=== PATIENT | male | born 1960 | race Caucasian/White ===

== ENCOUNTER 2018-05-06 18:35 | Inpatient (IN) | payer BC, OTHER ==
[2018-05-06] MEDS ORDERED: ceFAZolin 2 GM/DEXTROSE 100 ML IV ONE (18:40)
[2018-05-06] MEDS ORDERED: NS 1,000 ML IV ONE (18:40)
[2018-05-06] MEDS ORDERED: fentaNYL 100 MCG/2 ML INJ IVP ONE (18:40)
[2018-05-06] MEDS ORDERED: TDAP ADULT 0.5 ML INJ (BOOSTRIX) IM ONE (18:41)
[2018-05-06] MEDS ORDERED: PANTOPRAZOLE SODIUM 40 MG VIAL IVP ONE (18:43)
--- NOTE | 2018-05-06 18:46 | EDPHY ---
H & P Time Seen by Provider: 05/06/18 18:43 HPI/ROS: Chief complaint. Full trauma activation HPI. Patient is a 57-year-old male presents emergency department by EMS with as a full trauma activation. He cut his left forearm with a box stacker and sustained pulsatile bleeding. The patient says this was an accidental laceration. Tourniquet applied 35 min prior to arrival. There is no other injuries. No focal weakness to his fingers. Paresthesias to left hand after the tourniquet has been on. ROS 10 systems were reviewed and negative with the exception of the elements mentioned in the history of present illness Past Medical/Surgical History: Hypertension Social History: Single, nonsmoker, no alcohol Physical Exam: General Appearance: Alert well-developed male moderate distress vital signs stable Eyes: Pupils equal and round no pallor or injection. ENT, Mouth: Mucous membranes are moist. Respiratory: There are no retractions, lungs are clear to auscultation. Cardiovascular: Regular rate and rhythm. Gastrointestinal: Abdomen is soft and nontender, no masses, bowel sounds normal. Neurological: Awake and alert, sensory and motor exams grossly normal. Skin: Warm and dry, no rashes. Musculoskeletal: Neck is supple nontender. Extremities left forearm shows about a 4 in laceration on the flexor side of the mid forearm. When we let the tourniquet down the patient has brisk bleeding but not obviously pulsatile. Flexor tendon testing appears normal. The arm is dusky after being in the tourniquet. Patient does have sensation in median, radial, ulnar nerve distributions. Psychiatric: Patient is oriented X 3, there is no agitation. Constitutional: Initial Vital Signs Temperature (C) 36.9 C 05/06/18 18:29 Heart Rate 54 L 05/06/18 18:29 Respiratory Rate 18 05/06/18 18:29 Blood Pressure 150/105 H 05/06/18 18:29 O2 Sat (%) 99 05/06/18 18:29 O2 Delivery Mode Room Air Medical Decision Making Procedures: IV normal saline. Ancef IV. Tetanus update is performed. Patient is typed and crossed for 2 units of blood ED Course/Re-evaluation: Dr. Logan is present prior to the patient arrival in sees the patient with me. We explained to the patient that he needs to go to the operating room for repair. Last meal was apparently 1 and 0.5 hr ago but he does not remember when he 8. I also consulted and discussed case with Dr. Davenport on-call for hands. He will be available to Dr. Logan should need arise during surgery Differential Diagnosis: This appears to be radial artery laceration. I suspect that there is muscle or tendon involvement though the patient's exam in the ED appears relatively normal. Sensation appears normal and at this time and does not appear he sustain major nerve injury. Plan is operating room - Data Points Laboratory Results: Laboratory Results 05/06/18 18:43 05/06/18 18:43 05/06/18 05/06/18 05/06/18 18:48 18:43 18:43 WBC RBC Hgb POC Hgb 14.3 gm/dL gm/dL (13.7-17.5) Hct POC Hct 42 % % (40-51) MCV MCH MCHC RDW Plt Count MPV Neut % (Auto) Lymph % (Auto) Hendry % (Auto) Eos % (Auto) Baso % (Auto) Nucleat RBC Rel Count Absolute Neuts (auto) Absolute Lymphs (auto) Absolute Monos (auto) Absolute Eos (auto) Absolute Basos (auto) Absolute Nucleated RBC Immature Gran % Immature Gran # PT INR APTT POC Sodium 143 mEq/L mEq/L (135-145) Sodium 136 mEq/L mEq/L (135-145) POC Potassium 3.1 mEq/L L mEq/L (3.3-5.0) Potassium 3.4 mEq/L L mEq/L (3.5-5.2) POC Chloride 106 mEq/L mEq/L (97-110) Chloride 107 mEq/L mEq/L (97-110) Carbon Dioxide 24 mEq/l mEq/l (22-31) POC Total CO2 25 mEq/L mEq/L (22-31) Anion Gap 5 mEq/L L mEq/L (6-14) POC BUN 17 mg/dL mg/dL (7-23) BUN 20 mg/dL mg/dL (7-23) Creatinine 1.1 mg/dL mg/dL (0.7-1.3) POC Creatinine 1.2 mg/dL mg/dL (0.7-1.3) Estimated GFR > 60 Glucose 106 mg/dL H mg/dL (70-100) POC Glucose 109 mg/dL H mg/dL (70-100) Calcium 8.6 mg/dL mg/dL (8.5-10.4) Patient ABO/Rh A POSITIVE Antibody Screen NEGATIVE Crossmatch IS Only See Detail 05/06/18 05/06/18 18:43 18:43 WBC 8.54 10^3/uL 10^3/uL (3.80-9.50) RBC 4.55 10^6/uL 10^6/uL (4.40-6.38) Hgb 14.1 g/dL g/dL (13.7-17.5) POC Hgb Hct 41.7 % % (40.0-51.0) POC Hct MCV 91.6 fL fL (81.5-99.8) MCH 31.0 pg pg (27.9-34.1) MCHC 33.8 g/dL g/dL (32.4-36.7) RDW 13.6 % % (11.5-15.2) Plt Count 229 10^3/uL 10^3/uL (150-400) MPV 9.6 fL fL (8.7-11.7) Neut % (Auto) 78.2 % H % (39.3-74.2) Lymph % (Auto) 13.9 % L % (15.0-45.0) Hendry % (Auto) 5.9 % % (4.5-13.0) Eos % (Auto) 1.4 % % (0.6-7.6) Baso % (Auto) 0.2 % L % (0.3-1.7) Nucleat RBC Rel Count 0.0 % % (0.0-0.2) Absolute Neuts (auto) 6.68 10^3/uL H 10^3/uL (1.70-6.50) Absolute Lymphs (auto) 1.19 10^3/uL 10^3/uL (1.00-3.00) Absolute Monos (auto) 0.50 10^3/uL 10^3/uL (0.30-0.80) Absolute Eos (auto) 0.12 10^3/uL 10^3/uL (0.03-0.40) Absolute Basos (auto) 0.02 10^3/uL 10^3/uL (0.02-0.10) Absolute Nucleated RBC 0.00 10^3/uL 10^3/uL (0-0.01) Immature Gran % 0.4 % % (0.0-1.1) Immature Gran # 0.03 10^3/uL 10^3/uL (0.00-0.10) PT 12.6 SEC SEC (12.0-15.0) INR 0.98 (0.83-1.16) APTT 20.0 SEC L SEC (23.0-38.0) POC Sodium Sodium POC Potassium Potassium POC Chloride Chloride Carbon Dioxide POC Total CO2 Anion Gap POC BUN BUN Creatinine POC Creatinine Estimated GFR Glucose POC Glucose Calcium Patient ABO/Rh Antibody Screen Crossmatch IS Only Medications Given: Discontinued Medications Diphtheria/Tetanus/Acell Pertussis (Boostrix) 0.5 ml IM .ONCE ONE Stop: 05/06/18 18:42 Last Admin: 05/06/18 18:48 Dose: 0.5 ml Fentanyl (Sublimaze) 100 mcg IVP EDNOW ONE Stop: 05/06/18 18:41 Last Admin: 05/06/18 18:49 Dose: 50 mcg Cefazolin Sodium/Dextrose (Ancef) 100 mls @ 200 mls/hr IV EDNOW ONE PRN Reason: Protocol Stop: 05/06/18 19:09 Last Admin: 05/06/18 18:43 Dose: 100 mls Sodium Chloride (Ns) 1,000 mls @ 0 mls/hr IV ONCE ONE; Wide Open PRN Reason: Protocol Stop: 05/06/18 18:41 Last Admin: 05/06/18 18:48 Dose: 1,000 mls Pantoprazole Sodium (Protonix) 40 mg IVP EDNOW ONE Stop: 05/06/18 18:44 Last Admin: 05/06/18 18:50 Dose: 40 mg Point of Care Test Results: Chemistry 05/06/18 18:48 POC Sodium 143 mEq/L mEq/L (135-145) POC Potassium 3.1 mEq/L L mEq/L (3.3-5.0) POC Chloride 106 mEq/L mEq/L (97-110) POC Total CO2 25 mEq/L mEq/L (22-31) POC BUN 17 mg/dL mg/dL (7-23) POC Creatinine 1.2 mg/dL mg/dL (0.7-1.3) POC Glucose 109 mg/dL H mg/dL (70-100) ISTAT H&H 05/06/18 18:48 POC Hgb 14.3 gm/dL gm/dL (13.7-17.5) POC Hct 42 % % (40-51) Departure - Departure Disposition: [facility] Inpatient Acute Clinical Impression: Laceration of radial artery Qualifiers: Encounter type: initial encounter Laterality: left Qualified Code(s): S55.112A - Laceration of radial artery at forearm level, left arm, initial encounter Condition: Fair
[2018-05-06 18:50] LABS: PLATELET COUNT 229 10^3/uL (150-400)
[2018-05-06] MEDS ORDERED: fentaNYL 100 MCG/2 ML INJ ONE ×2 (18:57→21:11)
[2018-05-06] MEDS ORDERED: PROPOFOL 200 MG/20 ML VIAL ONE (18:57)
[2018-05-06 19:00] LABS: INR 0.98 (0.83-1.16); PROTIME(PATIENT) 12.6 SEC (12.0-15.0)
[2018-05-06] MEDS ORDERED: SURGIFLO MATRIX KIT WITH THROMBIN 8 ML TP ONE (19:07)
[2018-05-06] MEDS ORDERED: GLYCOPYRROLATE 0.2 MG/1 ML VIAL ONE (19:19)
[2018-05-06] MEDS ORDERED: DEXAMETHASONE 4 MG/ML VIAL ONE (19:22)
[2018-05-06] MEDS ORDERED: SUCCINYLCHOLINE CHLORIDE 200 MG/10 ML SYR IVP ONE (19:22)
[2018-05-06] MEDS ORDERED: ONDANSETRON 4 MG/2 ML VIAL ONE (19:22)
[2018-05-06] MEDS ORDERED: HEPARIN 10,000 UNIT/10 ML MDV (1,000 UNIT/ML) ONE (19:23)
--- NOTE | 2018-05-06 19:37 | PDANEPAE ---
ANE History of Present Illness repair laceration ANE Past Medical History - Cardiovascular History Hx Hypertension: No Hx Arrhythmias: No Hx Chest Pain: No Hx Coronary Artery / Peripheral Vascular Disease: No Hx CHF / Valvular Disease: No Hx Palpitations: No - Pulmonary History Hx COPD: No Hx Asthma/Reactive Airway Disease: No Hx Recent Upper Respiratory Infection: No Hx Oxygen in Use at Home: No Hx Sleep Apnea: No - Neurologic History Hx Cerebrovascular Accident: No Hx Seizures: No Hx Dementia: No - Endocrine History Hx Diabetes: No Hypothyroid: No Hyperthyroid: No Obesity: no - Renal History Hx Renal Disorders: No - Liver History Hx Hepatic Disorders: No ANE Review of Systems Review of Systems: - Exercise capacity Exercise capacity: >=4 METS ANE Patient History - Anes Hx Anes Hx: no prior problems - Smoking Hx Smoking Status: Unknown if ever smoked ANE Labs/Vital Signs - Labs Result Diagrams: 05/06/18 18:43 05/06/18 18:43 - Vital Signs Blood Pressure: 177/105 Heart Rate: 66 Respiratory Rate: 18 O2 Sat (%): 99 Height: 177.8 cm Weight: 68.039 kg ANE Physical Exam - Airway Mallampati Score: Class 2 Mouth exam: normal dental/mouth exam - Pulmonary Pulmonary: no respiratory distress - Cardiovascular Cardiovascular: regular rate and rhythym - ASA Status ASA Status: E ANE Anesthesia Plan Anesthesia Plan: general endotracheal anesthesia Urgent/Emergent Case: Gina whiting completed preop but documented later for safe timely pt care
[2018-05-06] MEDS ORDERED: PHENYLEPHRINE HCL 100 MCG/ML SYR ONE (19:51)
[2018-05-06] MEDS ORDERED: ePHEDrine SULFATE 25 MG/5 ML SYR ONE (20:07)
[2018-05-06] MEDS ORDERED: KETOROLAC 30 MG/1 ML SDV ONE (20:49)
--- NOTE | 2018-05-06 21:08 | POSTANESTH ---
Post Anesthetic Evaluation Cardiovascular Status: Normal, Stable Respiratory Status: Normal, Stable Level of Consciousness/Mental Status: Can Participate in Eval Pain Control: Adequate, Prn Tx Ordered Nausea/Vomiting Control: Adequate, Prn Tx Ordered Complications Possibly Related to Anesthesia: None Noted
[2018-05-06] MEDS ORDERED: LR 500 ML IV PRN (21:09)
[2018-05-06] MEDS ORDERED: ALBUTEROL 3 ML DEYVIAL IH PRN (21:09)
[2018-05-06] MEDS ORDERED: ONDANSETRON 4 MG/2 ML VIAL IVP PRN ×2 (21:09→21:29)
[2018-05-06] MEDS ORDERED: NALOXONE HCL 0.4 MG/ML INJ IVP PRN ×2 (21:09→23:40)
[2018-05-06] MEDS: fentaNYL 100 MCG/2 ML INJ IVP PRN ×2 (21:13→21:25)
--- NOTE | 2018-05-06 21:29 | POSTOPPROG ---
Post Op Note Date of Operation: 05/06/18 Surgeon: Antonio Logan Anesthesia: GET(General Endotracheal) Pre-op Diagnosis: laceration of distal left forearm with arterial injury ( nondominate) Post-op Diagnosis: laceration of left radial artery and nerve Indication: laceration of distal left forearm with arterial injury (nondominate ) Procedure: arterial repair Findings: laceration of left radial artery and nerve Inf/Abcess present in the surg proc area at time of surgery?: No Total fluids administered: 900 Complications: none Specimen(s): none
[2018-05-06] MEDS ORDERED: LR 1,000 ML IV SCH (21:30)
[2018-05-06] MEDS ORDERED: HYDROmorphONE/DILAUDID 2 MG/ML INJ ONE (21:33)
[2018-05-06] MEDS ORDERED: HYDROmorphONE/DILAUDID 1 MG/ML INJ IVP PRN ×2 (21:36→21:40)
[2018-05-06] MEDS: HYDROmorphONE/DILAUDID 2 MG/ML INJ IVP PRN ×2 (21:53→22:01)
[2018-05-06] MEDS ORDERED: HEPARIN 10,000 UNIT/10 ML MDV (1,000 UNIT/ML) IVP PRN (21:54)
--- NOTE | 2018-05-06 22:02 | GHP ---
[f rep st] PREOP HISTORY AND PHYSICAL DATE OF ADMISSION: 05/06/2018 ADMITTING DIAGNOSIS: Laceration left wrist with arterial bleeding. 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 Applied pressure to the wrist. EMS was summoned. Initially, a tourniquet was placed at the level of the elbow, which was inadequate. This was moved to the mid biceps. Travel time with tourniquet was approximately 30 minutes to [facility]. On presentation, he was awake and alert. He was complaining of pain in his left arm. Note is made that he last ate 1.5 hours ago but he cannot remember what he had. His breathing is uncompromised. His airway is clear. Bleeding has been controlled. He states he is not having other medical problems or taking any medications. ALLERGIES: He has no known drug allergies. PHYSICAL EXAMINATION: Head to toe examination does not show any signs of any other injury. The regular blood pressure cuff is now placed on the forearm. The tourniquet was removed from the biceps. Blood pressure cuff has been elevated to 240 mmHg. The wound is oblique going from the lateral aspect of the radial surface to more towards the midline. It is approximately 4 cm long. There is a large clot present. He has sensation on digits 1 through 5 on the palmar surface. He is able to clench his fist and give me a thumbs up. There does not appear to be a ligamentous or tendon injury. Arrangements were made for urgent transfer to the operating room. He has received tetanus, 40 mg of Protonix and 2 g of Ancef in the ER. /[id number]/MODL MTDD
[2018-05-06] MEDS: ACETAMINOPHEN 500 MG TAB PO SCH (22:44)
[2018-05-06] MEDS: HEPARIN/DEXTROSE 500 ML IV SCH (23:20)
[2018-05-06] MEDS ORDERED: TEARS/DEXTRAN 70/HYPROMELLOSE 15 ML OPHT.BTL EACHEYE PRN (23:41)
[2018-05-07] MEDS: HYDROmorphONE/DILAUDID 6 MG/30 ML PCA IV PRN ×2 (00:02→06:03)
[2018-05-07] MEDS: KETOROLAC 30 MG/1 ML SDV IVP SCH ×4 (03:27→21:17)
--- NOTE | 2018-05-07 04:22 | GOP ---
[f rep st] OPERATIVE REPORT DATE OF OPERATION: 05/06/2018 SURGEON: Antonio Logan MD ANESTHESIA: General endotracheal. PREOPERATIVE DIAGNOSIS: Laceration, left wrist with vascular injury. POSTOPERATIVE DIAGNOSIS: Laceration, left wrist with vascular injury PROCEDURE PERFORMED: Primary repair of transected left radial artery. Attempt was made to repair, to reapproximate nerve, but this was not feasible. The ends were carefully tagged. Dr. Jareth Davenpotr, had been contacted intraoperatively and will see the patient tomorrow. I suspect from it's location that it is more likely a cutaneous nerve. FINDINGS: Transection of left radial artery and transection of a lateral nerve. INDICATIONS: Laceration of the left wrist with a vascular injury. DESCRIPTION OF PROCEDURE: The patient was placed on the operating table in a supine position. After induction of adequate general endotracheal anesthesia webril and an orthopedic tourniquet was placed around the left biceps. This is inflated and the manual blood pressure cuff was removed from the forearm. The left arm was carefully prepped and draped out onto an operative armboard. A surgical time-out was carried out and agreed to by all members of the operative team. The wound was well irrigated with a Simpulse. The transected ends of the artery were identified. These were carefully freed proximally and distally, which allows easy and tension-free approximation. The patient received 5000 units of heparin after Satinsky clamps were placed on both open ends and the tourniquet was released. A [place] catheter was passed and distally. The artery was irrigated proximally and distally with heparin containing saline solution. The Satinsky clamps were reapplied. The posterior wall of the distal segment was spatulated and the anterior wall of the proximal segment was spatulated. #6-0 Prolene was used for the repair. The middle of the posterior wall of the proximal segment was carefully approximated to the end of the spatulation on the distal segment. This was tied with essentially no tension. A second suture was placed on the anterior aspect of the distal segment and sutured through end of the spatulation on the proximal segment. In both cases the double armed sutures were passed from intima to serosa. The sutures were now tied in both cases and run, first on the lateral wall to the midpoint and tied and then on the medial wall. Before they were tied, the vessels were carefully flushed again. A small Bakes dilator was passed distally and proximally to assure a good non-constricting anastomosis. It is flushed from the distal and then from the proximal and then from the distal end. The sutures were then tied. The Satinsky clamps were released and flow was being reestablished and confirmed with Doppler interrogation. Papaverine solution was carefully injected into the adventitia of the vessel proximally and distally. A small amount was also placed in the lumen. The flow was excellent as identified by Doppler. On exploring the wound, there does not appear to be any significant muscle belly injury. There was a small lateral nerve which was identified. It was carefully freed distally and proximally, but I am unable to adequately approximate it. I did call Dr. Davenport (hand surgery) from the operating room and he is not available at this time. I feel this probably is a lateral sensory nerve given the findings preoperatively. Both ends were tagged with 7-0 Prolene so it will be easier to find if necessary. He will see the patient tomorrow and decide whether reexploration is in fact necessary. The wound was again irrigated with a Simpulse. Interrupted dermal sutures of 3-0 Vicryl were placed. Lillian were placed in the skin. The patient was transferred to recovery in stable and satisfactory condition. /[id number]/MODL MTDD
[2018-05-07 05:49] LABS: PLATELET COUNT 165 10^3/uL (150-400)
[2018-05-07] MEDS: ACETAMINOPHEN 500 MG TAB PO SCH ×3 (06:03→21:30)
[2018-05-07] MEDS ORDERED: oxyCODONE IR 5 MG TAB PO PRN (08:44)
--- NOTE | 2018-05-07 08:47 | TRAUMAPN ---
Trauma Progress Note Assessment/Plan: 57yo M s/p self-inflicted lac to L wrist, radial artery injury, nerve injury TERTIARY EXAM Neuro: distal neuro intact to the L hand. Has sensation, and full motor. Has some paresthesia to palmar area, there was identified nerve injury intra-op. Pulm: ARLIN, pulm toilet CV: HDS. On hep gtt to maintain patency. Will transition to PO tomorrow Abdomen: soft, ND, NT. Reg diet Renal: voiding, UOP approprite Heme: Hb stable. Hep gtt Id: afebrile Ortho: no fx Dispo: Tx from ICU. Hep gtt, add ASA +/- plavix. NWB to L hand Subjective: back pain Objective: Vital Signs Temp Pulse Resp BP Pulse Ox 36.6 C 57 L 13 121/67 H 95 05/07/18 06:00 05/07/18 06:00 05/07/18 06:00 05/07/18 06:00 05/07/18 06:00 Laboratory Results 05/07/18 05:00 05/07/18 05:00 05/06/18 05/07/18 05/08/18 05:59 05:59 05:59 Intake Total 3214 Output Total 425 Balance 2789 PT 12.6 SEC (12.0-15.0) 05/06/18 18:43 INR 0.98 (0.83-1.16) 05/06/18 18:43
[2018-05-07] MEDS: ASPIRIN 325 MG TAB PO SCH (12:19)
--- NOTE | 2018-05-07 12:25 | PDMN ---
Medical Necessity Medical necessity: [facility] Gen admission 57yo M with self inflicted Lac to wrist with radial artery injury and nerve injury status changed to INPT 05/07/18 for ongoing med nec care, further monitoring, eval and tx. 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
[2018-05-07] MEDS ORDERED: CARISOPRODOL 350 MG TAB PO PRN (13:57)
--- NOTE | 2018-05-07 15:19 | ASMTCMCOM ---
CM Note CM Note Notes: Pt cut his wrist working on his cat's house. Pt declined PT/OT eval and declined wrist splint, see notes. Chart review indicates pt resides with . Pt is self-pay. Pt likely independent. CM available for changes/needs. Date Signed: 05/07/2018 03:19 PM Electronically Signed By:MARCELLUS Hedrick
--- NOTE | 2018-05-07 16:01 | SOAPPROG ---
[facility] Progress Note Assessment/Plan: Assessment:Lacertioan palmar cutaneous branch of median nerve left forearm Plan: This does not in most cases require repair. Discussed options with Mr. Lora and he's opting not to have it explored and repaired. 05/07/18 15:59 Objective: Vital Signs Temp Pulse Resp BP Pulse Ox 36.5 C 44 L 16 146/88 H 95 05/07/18 13:23 05/07/18 13:23 05/07/18 13:23 05/07/18 13:23 05/07/18 13:23 Laboratory Results 05/07/18 05:00 05/07/18 05:00 05/06/18 05/07/18 05/08/18 05:59 05:59 05:59 Intake Total 3214 Output Total 425 Balance 2789 PT 12.6 SEC (12.0-15.0) 05/06/18 18:43 INR 0.98 (0.83-1.16) 05/06/18 18:43 Numbness in palmar cutaneous branch distribution left hand ICD10 Worksheet Patient Problems: Problems Problem Status Onset Laceration of radial artery Acute
--- NOTE | 2018-05-07 16:51 | GCON ---
[f rep st] CONSULTATION DATE OF CONSULTATION: 05/07/2018 REFERRING PHYSICIAN: Antonio Logan MD REASON FOR CONSULTATION: Nerve injury, left forearm. 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 He was diagnosed with arteria l bleeding and taken to the operating room for repair of the radial artery. During the course of the surgery, Dr. Logan noticed laceration of a small nerve. PAST MEDICAL HISTORY: He is apparently healthy, a nonsmoker, with a history of hypertension. ALLERGIES: None known. PHYSICAL EXAMINATION: GENERAL APPEARANCE: He is a pleasant, healthy-looking 57-year-old male. EXTR EMITIES: He has a repaired laceration, oblique in nature, on the radial volar surface of his forearm at the junction of the middle and distal thirds. This has been closed with asya. His radial pul se is palpable distal to the laceration. Function of his extrinsic and intrinsic muscles of his hand appears to be normal. Sensation in the fingers and thumb is all normal. As I suspected, he appears to have numbness in the distribution of the palmar cutaneous branch of the median nerve. IMPRESSION: Laceration, palmar cutaneous branch of median nerve. PLAN: I discussed the nature of this injury with the patient. In my opinion, in most cases, this ty pe of nerve injury does not need to be repaired. There is a small possibility of development of a ne uroma, but in most cases, this does not occur, and the area of numbness gradually lessens with time. The patient is not inclined to have it explored and repaired at this time. /[id number]/MODL
[2018-05-07] MEDS: HYDROCODONE/APAP 5/325 TAB PO PRN (22:33)
[2018-05-08] MEDS: HYDROCODONE/APAP 5/325 TAB PO PRN ×2 (00:45→06:25)
[2018-05-08] MEDS: HEPARIN/DEXTROSE 500 ML IV SCH (00:47)
[2018-05-08] MEDS: KETOROLAC 30 MG/1 ML SDV IVP SCH ×2 (03:22→09:04)
[2018-05-08] MEDS: ACETAMINOPHEN 500 MG TAB PO SCH (06:40)
[2018-05-08 08:56] VITALS: BP 148/96
[2018-05-08] MEDS ORDERED: VALSARTAN/HCTZ 80-12.5MG TAB PO PRN (09:00)
[2018-05-08] MEDS: ASPIRIN 325 MG TAB PO SCH (09:04)
--- NOTE | 2018-05-08 09:43 | TRAUMAPN ---
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 Subjective: My hand/wrist feels good but still has a numb area Objective: Vital Signs Temp Pulse Resp BP Pulse Ox 36.4 C 59 L 16 148/96 H 98 05/08/18 08:00 05/08/18 08:00 05/08/18 08:00 05/08/18 08:00 05/08/18 08:00 Laboratory Results 05/08/18 04:29 05/07/18 05:00 05/07/18 05/08/18 05/09/18 05:59 05:59 05:59 Intake Total 3214 875 Output Total 425 Balance 2789 875 PT 12.6 SEC (12.0-15.0) 05/06/18 18:43 INR 0.98 (0.83-1.16) 05/06/18 18:43 - C-Spine Clearance Cervical Spine Cleared: Yes Provider who Cleared Cervical Spine: Desmond Physical Exam - Physical Exam General Appearance: WD/WN, alert, no apparent distress Extremities: other (incision clean and dry, asya removed, steri strips placed , good pulse, good flow by doppler) Neuro/Psych: no motor/sensory deficits, alert, normal mood/affect, oriented x 3 Time Spent w/Patient (minutes): 15
[2018-05-08] MEDS ORDERED: oxyCODONE IR 5 MG TAB PO PRN (10:11)
--- NOTE | 2018-05-08 10:47 | GDS ---
[f rep st] DISCHARGE SUMMARY DIAGNOSES: 1. Laceration left radial artery. 2. Laceration median branch of the palmar sensory nerve. 3. Chronic back issues. PROCEDURE PERFORMED: Repair of left radial artery. DISPOSITION: Home. CONDITION: Improved. DIET: Unrestricted. There are no restrictions on the texture of his diet. MEDICATIONS: For platelet inhibition, he will take an aspirin 325 mg twice a day for 30 days. He wi ll take, for pain control, Tylenol 1000 mg every 8 hours and oxycodone IR 15 mg p.o. q.6. He will co ntinue his Soma 325 mg three times daily with meals p.r.n. spasm. He will continue his valsartan/hyd rochlorothiazide 160/25 once daily for a blood pressure of greater than 145. He will use his Natural Balance Tears as needed. His Motrin and tramadol have been discontinued. 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 He is to avoid stretching the incision and to keep his Steri-Strips in place. He may shower onl y. Water may run across the wound, but he is not to scrub the Steri-Strips off. Because of his chronic back pain with a recent acute exacerbation, I have strongly recommended that ele jenkins get a neurosurgery/orthopedic surgery consult to see if there is anything which can be surgically d one to stabilize his spine and minimize discomfort. FOLLOW UP: He will follow up with Dr. Welch' his office (Drs. Welch, Catrachito, Kenan) in 2 weeks. HOSPITAL COURSE: The patient has done well postoperatively. He was on heparin drip for 36 hours pos top. He has been started on anti-platelet medication (aspirin). He will continue that. At this josé miguel e, he has a good triphasic flow in the left radial artery by Doppler. His hand is warm. There is an area of anesthesia over the portion of the thenar eminence because of the nerve injury. The patient is set for discharge. /[id number]/MODL
== END 2018-05-08 11:19 | disposition home or self-care (01) | DRG 909 ==
LOC: EDUNIT# → F2N 22:11 → F3N 05-07 13:17
PROVIDERS: ADMIT Surgery; ATTEND Surgery
PROC: 03QC0ZZ Repair Left Radial Artery, Open Approach (ICD-10-PCS; principal; 2018-05-06 18:15)
DX: S55.112A Laceration of radial artery at forearm level, left arm, initial encounter (principal); S64.12XA Injury of median nerve at wrist and hand level of left arm, initial encounter; W26.8XXA Contact with other sharp object(s), not elsewhere classified, initial encounter; Y92.019 Unspecified place in single-family (private) house as the place of occurrence of the external cause; E86.9 Volume depletion, unspecified
CPT/HCPCS: 82435-PO; 82565-PO; 82947-PO; 84132-PO; 84295-PO; 84520-PO; 85014-ER; 85520-90; 96365; C1757; J0330; J0690; J1100; J1170; J1644; J1885; J2370; J2405; J2704; J3010

== ENCOUNTER → 2018-07-07 | Outpatient (CLI) | payer BC | LOC: FIMAGING 17:33 | PROVIDERS: ATTEND Family Medicine | DX: R10.2 Pelvic and perineal pain (principal); Z87.828 Personal history of other (healed) physical injury and trauma; M51.36 Other intervertebral disc degeneration, lumbar region; M51.26 Other intervertebral disc displacement, lumbar region; M51.27 Other intervertebral disc displacement, lumbosacral region ==